=== PATIENT | male | born 1970 | race Caucasian/White ===

== ENCOUNTER 2020-06-14 00:48 | Outpatient (CLI) | payer OTHER, SELFPAY ==
[2020-06-14 18:32] LABS: SARS-CoV-2 RNA PCR Negative
== END 2020-06-14 00:49 | disposition home or self-care (01) ==
LOC: ANHCOVIDDT 00:49
PROVIDERS: PCP Family Medicine; Visit Provider Internal Medicine Gastroenterology
DX: Z01.812 Encounter for preprocedural laboratory examination (principal); Z11.59 Encounter for screening for other viral diseases
CPT/HCPCS: 87635; C9803; U0003

== ENCOUNTER 2020-06-17 01:57 | Day surgery (SDC) | payer OTHER, SELFPAY ==
[2020-06-06 11:33] VITALS: BMI 23.1
[2020-06-17 10:23] VITALS: BP 132/90; PULSE 72; RESP 18; TEMP 36.8; O2SAT 100
--- NOTE | 2020-06-17 10:28 | WPDANESEPPF ---
Anes - Initial Pre Proc Eval Procedure: Operation Date: 06/17/20 11:30 Proposed Procedures p Screening Colonoscopy - Junior Platt MD Date/Time: 06/17/20 10:28 Surgeon: Junior Platt MD Pre Op Diagnosis: Neoplasm Screening Patient Data Age: 50 Gender: M Height: 5 ft 11 in Weight: 73 kg Last Vital Signs Temp 98.3 F 06/17/20 10:23 Pulse 72 06/17/20 10:23 Resp 18 06/17/20 10:23 BP 132/90 06/17/20 10:23 Pulse Ox 100 06/17/20 10:23 Allergies Allergy/AdvReac Type Severity Reaction Status Date / Time No Known Allergies Allergy Verified 06/17/20 10:22 Home Medications Medication Instructions Recorded Confirmed Type No Home Medications 09/28/19 06/17/20 History Patient hx anesthesia problems: none Family hx anesthesia problems: none PMFSH Surgical History Surgical History (System 09/29/19 @ 14:36 by Jayne Correa) No history of previous surgery Social History Social History (Updated 05/28/20 @ 08:57 by Mylene Rodriguez) Smoking packs per day: 0.5 Smoking cigarettes per day: 10.0 Years smoked: 5 Smoking pack-years: 2.50 Smoking status: Former smoker Tobacco type: cigarettes Smoking end date: 05/28/02 Alcohol intake: current Substance use: never Substance use type: does not use Gender identity (if verbalized by the patient): Male Anes - Eval Final PreProcedure Day of Procedure 06/17/20 10:28 Patient weight: normal Heart: regular rate and rhythm Lungs: clear to auscultation Airway: Mallampati scale class II Neurological: alert and oriented Last oral intake: >/= 8 hours ASA classification: II Emergent: no Anesthetic plan: proceed Anesthesia type and monitoring: general GIVS and standard monitoring Informed Consent: The patient's anesthetic plan and its attendant risks and benefits were discussed with the patient/family/POA. Questions were solicited and answers provided to the satisfaction of the patient/family/POA.
[2020-06-17] MEDS: LACTATED RINGERS 1,000 ML 150 ML IV CONT (10:35)
--- NOTE | 2020-06-17 11:01 | PM.HPGS ---
History of Present Illness History of Present Illness Consent: Risks, benefits, and alternatives have been discussed and questions answered. Patient agrees to proceed with procedure. Chief complaint: Neoplasm Screening Narrative: Chi Dubon is a 50 year old male [facility] Surgical History Surgical History (System 09/29/19 @ 14:36 by Jayne Correa) No history of previous surgery Social History Social History Smoking packs per day: 0.5 Smoking cigarettes per day: 10.0 Years smoked: 5 Smoking pack-years: 2.50 Smoking status: Former smoker Tobacco type: cigarettes Smoking end date: 05/28/02 Alcohol intake: current Substance use: never Substance use type: does not use Gender identity (if verbalized by the patient): Male Meds Home Medications and Allergies Home Medications Medication Instructions Recorded Confirmed Type No Home Medications 09/28/19 06/17/20 History Allergies Allergy/AdvReac Type Severity Reaction Status Date / Time No Known Allergies Allergy Verified 06/17/20 10:22 Vital Signs Vital Signs - 24 hr 06/17/20 10:23 Temperature 36.8 C Pulse Rate 72 Respiratory Rate 18 Blood Pressure 132/90 Pulse Oximetry 100 Exam Resp: Auscultation: clear to auscultation bilaterally Cardio: Rate: regular rate Rhythm: regular rhythm GI: GI Palp: Yes Soft to palpation and No Tenderness to palpation present (GI) Assessment and Plan Assessment and plan (1) Colon cancer screening: Code(s): Z12.11 - Encounter for screening for malignant neoplasm of colon Status: Acute Assessment and Plan: Colonoscopy with possible biopsy or polypectomy or cautery or injection of substances.
[2020-06-17 11:34] VITALS: BP 114/75; PULSE 84; RESP 23; O2SAT 97
[2020-06-17 11:44] VITALS: BP 110/80; PULSE 65; RESP 22; O2SAT 98
[2020-06-17 11:54] VITALS: BP 135/86; PULSE 66; RESP 17; O2SAT 100
== END 2020-06-17 12:13 | disposition home or self-care (01) ==
PROVIDERS: PCP Family Medicine; Visit Provider Internal Medicine Gastroenterology
PROC: 0DJD8ZZ Inspection of Lower Intestinal Tract, Via Natural or Artificial Opening Endoscopic (ICD-10-PCS; CPT 45378; principal; 2020-06-17 11:30)
DX: Z12.11 Encounter for screening for malignant neoplasm of colon (principal); Z87.891 Personal history of nicotine dependence
CPT/HCPCS: 45378; J2001; J2704; J7120

== ENCOUNTER 2020-06-23 13:16 | Outpatient (CLI) | payer OTHER, SELFPAY ==
--- NOTE | ~2020-06-23 | MMUS_ITS ---
EXAMINATION: MM diagnostic mammo unilat LT, US breast LT limited HISTORY: Left breast lump TECHNIQUE: Digital MLO and CC and right MLO views. CAD analysis was submitted and interpreted. High r esolution left breast ultrasound was performed. COMPARISON: None BREAST PARENCHYMAL COMPOSITION: There are scattered areas of fibroglandular density. FINDINGS: MAMMOGRAPHIC FINDINGS: There is minimal bilateral gynecomastia, more prominent on the left. No suspicious mammographic mass, architectural distortion or any malignant calcification, skin thickening or retraction is evident. ULTRASOUND: 1:00 1 cm from nipple: Parallel circumscribed 3.7 x 3.3 x 5.5 mm sonolucency without internal vascula rity or shadowing, probably benign cyst A 1.9 mm sonolucency consistent with probably benign cyst is adjacent. IMPRESSION: 1. No mammographic evidence of malignancy 2. Minimal bilateral gynecomastia, more prominent on the left 3. Probable cysts of left breast at 1:00 1 cm from nipple; 6 month left breast ultrasound follow-up i s recommended BI-RADS category 3, probably benign findings. Reviewed, dictated and finalized at location A. IMPRESSION: 1. No mammographic evidence of malignancy 2. Minimal bilateral gynecomastia, more prominent on the left 3. Probable cysts of left breast at 1:00 1 cm from nipple; 6 month left breast ultrasound follow-up is recommended BI-RADS category 3, probably benign findings.
== END 2020-06-23 13:17 | disposition home or self-care (01) ==
LOC: ANHIMG 13:17
PROVIDERS: PCP Family Medicine; Visit Provider Family Medicine
DX: N63.20 Unspecified lump in the left breast, unspecified quadrant (principal); R92.8 Other abnormal and inconclusive findings on diagnostic imaging of breast
CPT/HCPCS: 76642; 77065

== ENCOUNTER 2021-01-05 12:13 | Outpatient (CLI) | payer OTHER, SELFPAY ==
--- NOTE | ~2021-01-05 | US_ITS ---
US breast LT limited DATE: 01/05/2021 12:35 INDICATION: Probable cyst of left breast at 1:00 1 cm from nipple reported on limited lef t breast ultrasound TECHNIQUE: Real-time imaging of left breast targeted to 1:00 1 cm from nipple COMPARISON: 06/23/2020 left diagnostic mammogram and limited left breast ultrasound FINDINGS: 1:00 1 cm from nipple: There is an approximately 1.5 x 1.1 x 2.1 mm sonolucency without internal vasc ularity or posterior shadowing. The margins appear mildly irregular. Ultrasound-guided aspiration or if necessary biopsy is recommended. IMPRESSION: BI-RADS Category 4A: Suspicious abnormality; biopsy should be considered Recommendation: Ultrasound-guided aspiration attempt, with biopsy if necessary for 1:00 lesion 1 cm f rom nipple Reviewed, dictated and finalized at Location A. Reviewed, dictated and finalized at location A. ICIAN OBSTETRICIAN IMPRESSION: BI-RADS Category 4A: Suspicious abnormality; biopsy should be consi dered Recommendation: Ultrasound-guided aspiration attempt, with biopsy if necessary for 1:00 lesion 1 cm from nipple
== END 2021-01-05 12:14 | disposition home or self-care (01) ==
LOC: ANHIMG 12:19
PROVIDERS: PCP Family Medicine; Visit Provider Family Medicine
DX: N63.20 Unspecified lump in the left breast, unspecified quadrant (principal); R92.8 Other abnormal and inconclusive findings on diagnostic imaging of breast
CPT/HCPCS: 76642

== ENCOUNTER 2021-01-16 10:22 | Outpatient (CLI) | payer OTHER, SELFPAY ==
--- NOTE | ~2021-01-16 | US_ITS ---
US breast LT limited 01/16/2021 11:34 Indication: Mass identified on recent examination. Ultrasound-guided biopsy recommended. Procedure: High-resolution ultrasound of the left breast Comparison: 01/05/2021 Findings: Dr. Grajeda was present during the examination. At 1:00, 1 cm from the nipple, there is a comp licated cyst with enhanced or transmission, smooth margins and parallel orientation. No internal vasc ularity. This mass measures 3 mm. Impression: 1: Left breast mass measuring 3 mm at 1:00 is most likely benign complicated cyst. BI-RADS CATEGORY 3-PROBABLY BENIGN FINDING RECOMMENDATION: 6 month follow up recommended. Reviewed, dictated and finalized at location A. OFFICE Impression: 1: Left breast mass measuring 3 mm at 1:00 is most likely benign complicated cy st. BI-RADS CATEGORY 3-PROBABLY BENIGN FINDING RECOMMENDATION: 6 month follow up recommended.
== END 2021-01-16 10:23 | disposition home or self-care (01) ==
PROVIDERS: PCP Family Medicine; Visit Provider Surgery
DX: N63.20 Unspecified lump in the left breast, unspecified quadrant (principal); R92.8 Other abnormal and inconclusive findings on diagnostic imaging of breast
CPT/HCPCS: 76642

== ENCOUNTER → 2023-09-19 11:48 | Outpatient (CLI) | payer OTHER, SELFPAY ==
--- NOTE | ~2023-09-19 | XR_ITS ---
Lumbosacral Spine: AP, oblique, and lateral views Clinical History: Pain Findings: The normal lordotic curve is maintained. The vertebral bodies and posterior elements are i ntact. The intervertebral disc spaces are preserved. There are minimal facet joint degenerative adame ges. The sacroiliac joints are normally outlined. Impression: Minimal facet joint degenerative change at the lower lumbar spine. Reviewed, dictated and finalized at location . Impression: Minimal facet joint degenerative change at the lower lumbar spine.
== END ==
PROVIDERS: PCP Physician Assistant; Visit Provider Physician Assistant
DX: M54.50 Low back pain, unspecified (principal); M79.604 Pain in right leg
CPT/HCPCS: 72110

== ENCOUNTER 2023-11-03 16:35 | Outpatient (CLI) | payer OTHER, SELFPAY ==
--- NOTE | ~2023-11-03 | MR_ITS ---
EXAMINATION: MR lumbar spine wo con DATE: 11/03/2023 17:31 INDICATION: Intervertebral disc disorder with radiculopathy. Right-sided sciatica. TECHNIQUE: Magnetic resonance imaging (MRI) of the lumbar spine was performed without intravenous con trast. Sequences included sagittal T2-weighted FSE, sagittal T2-weighted FS FSE, sagittal T1-weighted FSE, and axial T2-weighted FSE. COMPARISON: Lumbar spine radiographs 08/14/2015 FINDINGS: Bone alignment is normal. Vertebral body heights are normal. There is moderately decreased disc height at L4-L5. The distal spinal cord signal intensity is normal. The conus medullaris is at L 1. The following disc levels are specifically discussed: L1-L2: The disc does not extend beyond the endplate margin. There is no facet joint osteoarthritis. T here is no neural foraminal stenosis. There is no central canal stenosis. L2-L3: The disc does not extend beyond the endplate margin. There is mild bilateral facet joint osteo arthritis. There is no neural foraminal stenosis. There is no central canal stenosis. L3-L4: The disc is mildly bulging. There is moderate right and mild left facet joint osteoarthritis. There is mild bilateral neural foraminal stenosis. There is no central canal stenosis. L4-L5: The disc is bulging. There is a superimposed right subarticular zone extrusion that extends to the posterior epidural space. There is severe bilateral facet joint osteoarthritis. There is moderat e bilateral neural foraminal stenosis. There is moderate central canal stenosis. L5-S1: There is a right central extrusion. There is mild bilateral facet joint osteoarthritis. There is no neural foraminal stenosis. There is mild central canal stenosis. IMPRESSION: 1. Moderate lumbar spondylosis, worst at L4-L5. Reviewed, dictated and finalized at location E. TEACHER
== END 2023-11-03 16:36 | disposition home or self-care (01) ==
PROVIDERS: PCP Physician Assistant
DX: M51.16 Intervertebral disc disorders with radiculopathy, lumbar region (principal); M43.06 Spondylolysis, lumbar region
CPT/HCPCS: 72148

== ENCOUNTER 2025-02-07 12:24 | Outpatient (CLI) | payer OTHER, SELFPAY ==
--- NOTE | ~2025-02-07 | MR_ITS ---
MRI of the lumbar spine Clinical History: Back pain Technique: Axial T2-weighted images, and sagittal T1-weighted, T2-weighted, and T2 fat-sat images wer e acquired. Findings: There is no fracture or subluxation of the lumbar spine. Vertebral bodies maintain normal h eight and alignment. No suspicious bone marrow signal abnormality seen. At L1-L2, there is no disc bulge or herniation. No spinal canal stenosis or neural foraminal narrowin g. At L2-L3, there is no disc bulge or herniation. No spinal canal stenosis or neural foraminal narrowin g. At L3-L4, there is minimal disc bulge. There is mild facet arthropathy. No central canal stenosis. Th ere is minimal bilateral neural foraminal narrowing. At L4-L5, there is mild degenerative disc narrowing. There is diffuse disc bulge with superimposed ri ght paracentral disc extrusion, mildly compressing the thecal sac and probably impinging the descendi ng right-sided L5-S1 level nerve root. There is moderate to advanced bilateral neural foraminal narro wing, right worse than left. At L5-S1, there is minimal disc bulge with annular fissure. No spinal canal stenosis or neural forami nal narrowing. Paravertebral soft tissues are unremarkable. Impression: Right paracentral disc extrusion at L4-L5, which probably impinges the descending right-sided L5-S1 l evel nerve root. Additional moderate to advanced degenerative spondylitic changes at L4-L5, as above. Additional minimal degenerative changes in the remainder of the lumbar spine, as above. Reviewed, dictated and finalized at location . Impression: Right paracentral disc extrusion at L4-L5, which probably impinges the descendi ng right-sided L5-S1 level nerve root. Additional moderate to advanced degenerative spondylitic changes at L4-L5, as a jued. Additional minimal degenerative changes in the remainder of the lumbar spine, a s above.
--- OUTSIDE RECORDS SUMMARY | 2025-02-07 13:54 | XMS_ITS | Referral Summary ---
Author Organization [facility] Address [address] [place] [address] Care Team Providers Care Aging Room Hand Name Role Phone Elpidio Steinberg MD Primary Care Provider Allergies No known active allergies Medications cyclobenzaprine (FLEXERIL) 5 mg tablet Take 1 tablet (5 mg total) by mouth 3 (three) times a day as needed for muscle spasms 09/12/2023 Active gabapentin (NEURONTIN) 300 mg capsule 09/22/2023 Active meloxicam (MOBIC) 15 mg tablet Take 1 tablet (15 mg total) by mouth daily 09/19/2023 Active Active Problems No known active problems Social History Tobacco Use Types Packs/Day Years Used Date Smoking Tobacco: Former Cigarettes Q uit: 2004 Tobacco Cessation:Counseling Given: No AUDIT-C Answer Date Recorded Q1: How often do you have a drink containing alc ohol? 2-4 times a month 10/28/2023 Q2: How many drinks containi ng alcohol do you have on a typical day when you are drinking? 3 or 4 10/28/2023 Q3: How often do you have si x or more drinks on one occasion? Never 10/28/2023 Personal Safety Answer Date Recorded Getting School Help Needed Not on file 02/11 Sex and Gender Information Value Date Recorded Sex Assigned at Not on file Legal Sex Male 10:40 AM CDT Gender Identity Not on file Sexual Orientation Not on file Occupation Industry Job Start Date Job End Date Professor Not on file Not on file Not on file Last Filed Vital Signs Vital Sign Reading Time Taken Comments Blood Pressure 130/87 10/28/2023 12:29 PM DIRECTOR OF RECREATION THERAPY Pulse 68 10/28/2023 12:29 PM DIRECTOR OF RECREATION THERAPY Temperature - - Respiratory Rate - - Oxygen Saturation - - Inhaled Oxygen Concentration - - Weight 77.1 kg (170 lb) 10/28/2023 12:29 PM DIRECTOR OF RECREATION THERAPY Height 180.3 cm (5' 11 ) 10/28/2023 12:29 PM DIRECTOR OF RECREATION THERAPY Body Mass Index 23.71 10/28/2023 12:29 PM DIRECTOR OF RECREATION THERAPY Plan of Treatment Not on file Insurance Care Teams Aging Room Hand Relationship Specialty Start Date End Date Elpidio Steinberg MD [address] [facility] [address] [place] [address] PCP - General Family Medicine 09/14/23
--- OUTSIDE RECORDS SUMMARY | 2025-02-07 13:54 | XMS_ITS | Clinical Summary ---
Author Organization [facility] Address [address] [place] [address] Care Team Providers Care Digital Media Planner Name Role Phone Elpidio Steinberg MD Primary [...] Active Active Problems No known active problems Family History Medical History Relation Name Comments Heart attack Other Heart disease Other Hypertension Other Relation Name Status Comments Other Social History Tobacco Use Types Packs/Day Years Used Date Smoking Tobacco: Former Cigarettes Q uit: 2003 Tobacco Cessation:Counseling Given: No AUDIT-C Answer Date [...] file Not on file Not on file Obstetrics History Last Filed Vital Signs Vital Sign Reading Time Taken Comments Blood Pressure 130/87 10/28/2023 12:29 PM DIGITAL INTERN Pulse 68 10/28/2023 12:29 PM DIGITAL INTERN Temperature - - Respiratory Rate - - Oxygen Saturation - - Inhaled Oxygen Concentration - - Weight 77.1 kg (170 lb) 10/28/2023 12:29 PM DIGITAL INTERN Height 180.3 cm (5' 11 ) 10/28/2023 12:29 PM DIGITAL INTERN Body Mass Index 23.71 10/28/2023 12:29 PM DIGITAL INTERN Plan of Treatment Health Maintenance Due Date Last Done Comments Colon Cancer Screening-Colonoscopy 1970 Depression Screening 1970 Hepatitis C Screening 1970 Prostate Cancer Screening-PSA 1970 DTaP/Tdap/Td Vaccine (1 - Tdap) 1981 Hepatitis B Screening 1988 Regular Well Visit/Exam 18-64 1988 Zoster Vaccine (1 of 2) 2020 Covid-19 Vaccine ( - 2023-2 5 season) 2024 01/05/2022, 03/15/2021, 02/22/2021 Influenza Vaccine (#1) 2024 Pneumococcal vaccine <65 Aged Out No longer eligible based on patient's age to complete this topic Insurance COUNTS INCLUDE 234 BEDS AT THE [facility] [id number] COUNTS INCLUDE 234 BEDS AT THE [facility] [id number] Care Teams Digital Media Planner Relationship Specialty Start Date End Date Elpidio Steinberg MD [address] [facility] [address] [place] [address] PCP - General Family Medicine 09/14/23
== END 2025-02-07 12:25 | disposition home or self-care (01) ==
PROVIDERS: PCP Family Medicine; Visit Provider Nurse Practitioner Family
DX: M51.26 Other intervertebral disc displacement, lumbar region (principal); M47.816 Spondylosis without myelopathy or radiculopathy, lumbar region
CPT/HCPCS: 72148

== ENCOUNTER 2025-11-17 08:55 | Emergency (ER) | payer OTHER, SELFPAY ==
--- NOTE | 2025-11-17 09:38 | ED.EXTPRO ---
HPI - Extremity Problem General Chief complaint: Extremity Problem,Nontraumatic Stated complaint: L thumb pain Time Seen by Provider: 11/17/25 09:00 Source: patient Mode of arrival: ambulatory Limitations: no limitations History of Present Illness HPI Narrative: patient is a 55-year-old male who presents with left thumb pain for 2 weeks. Patient denies any injury but does state he gets fungal infections frequently. Patient states it does feel different than his normal fungal infection. denies any swelling, drainage or redness. Patient able to move thumb normally Related Data Allergies Allergy/AdvReac Type Severity Reaction Status Date / Time No Known Allergies Allergy Verified 11/17/25 09:24 Review of Systems Review of Systems: All systems reviewed & are unremarkable except as noted in HPI and below Constitutional: Constitutional: Denies body ache(s), Denies chills, Denies fatigue, Denies fever(s), Denies headache(s), Denies malaise and Denies weakness Eyes: Eyes: Denies blurry vision, Denies irritation and Denies loss of vision ENT: Denies otalgia, Denies headache(s), Denies nasal discharge, Denies sinus pain and Denies sore throat Cardiovascular: Cardiovascular: Denies chest pain, Denies irregular heart rhythm and Denies dyspnea Respiratory: Respiratory: Denies dyspnea Gastrointestinal: Gastrointestinal: Denies abdominal pain, Denies melena, Denies hematochezia, Denies diarrhea, Denies nausea and Denies vomiting Musculoskeletal: Musculoskeletal: Denies back pain, Reports myalgias and Denies arthralgias Integumentary/Breasts: Skin/Breast: Denies pruritus and Denies rash Neurologic: Denies headache(s), Denies loss of vision and Denies weakness Psychiatric: Psychiatric: Reports no additional psychiatric complaints Endocrine: Endocrine: Denies fatigue PMFSH Past Medical History Medical History Healthy adult Surgical History Surgical History No history of previous surgery Family History Family History Father Heart disease Social History Social History Smoking packs per day: 0.5 Smoking cigarettes per day: 10.0 Years smoked: 5 Smoking pack-years: 2.50 Smoking status: Former smoker Tobacco type: cigarettes Smoking end date: 05/28/02 Alcohol intake: current Alcohol use details: social drinker Substance use: never Substance use type: does not use Living arrangements: with family Occupation/Education: occupation Additional occupation/education comments: Professor at [employer] Gender identity (if verbalized by the patient): Male Sexual Orientation (if Verbalized by the Patient): Straight or Heterosexual Comments At time of signature, agree with nursing past medical, surgical, social and family history. There is no relevant family history pertinent to the presenting complaint. Exam Const: General: cooperative, healthy appearing, comfortable, no acute distress and well nourished Nutritional Appearance: well nourished Orientation/consciousness: patient oriented x3 Limitations: no limitations HENMT: Head: normal to inspection, normocephalic and atraumatic Ears: hearing grossly normal bilaterally and external ears normal Face/Nose/Sinus: Normal external nose present, normal facial exam and face symmetric Face and sinus: normal facial exam and face symmetric Mouth: Yes lip normal Eyes: General: appearance normal, both eyes and all related structures Alignment and Position: alignment normal and position normal Periorbital: periorbital findings normal Eyelids: eyelids normal Pupils: Equal, round and reactive pupils present EOM: EOMs intact bilaterally Neck: Neck: normal visual inspection, full ROM and supple Chest: Chest palpation & inspection: normal inspection of the chest Resp: Effort & Inspection: normal respiratory effort and able to speak in complete sentences Auscultation: clear to auscultation bilaterally Cardio: Rate: regular rate Rhythm: regular rhythm Heart sounds: S1 normal heart sound present and S2 normal heart sound present GI: Inspection: normal to inspection Skin: General skin exam: normal color and no rashes or lesions noted Neuro: General: patient oriented x3 and moves all extremities Cranial nerves: Yes Equal, round and reactive pupils present Speech: normal speech Gait exam (Neuro): Normal gait present Extrem: General: normal to inspection, full ROM and no edema Hand/finger images:  1. linear discoloration with no drainage or erythema Psych: Appearance: grossly normal and well kempt Mental Status: mental status grossly normal Speech and movement: Normal speech and movement present Affect: normal affect Attitude: cooperative Thought process: Normal thought process present Course Course Emergency Course: Patient is aware of diagnosis, understands and agrees to treatment plan. Anticipatory guidance given. Patient agrees to follow-up as directed and is aware of reasons to seek care at the emergency department. Portions of this record may have been created with voice recognition software Level of Care: Express Care Visit Vital Signs Vital signs: Vital Signs Temperature 36.2 C L 11/17/25 09:46 Pulse Rate 55 L 11/17/25 09:46 Respiratory Rate 16 11/17/25 09:46 Blood Pressure 131/93 H 11/17/25 09:46 Pulse Oximetry 100 11/17/25 09:46 Oxygen Delivery Room Air 11/17/25 09:46 Temperature 36.2 C L 11/17/25 09:46 Pulse Rate 55 L 11/17/25 09:46 Respiratory Rate 16 11/17/25 09:46 Blood Pressure 131/93 H 11/17/25 09:46 Pulse Oximetry 100 11/17/25 09:46 Oxygen Delivery Room Air 11/17/25 09:46 MDM MDM Narrative Medical decision making narrative: will treat patient with antibiotics and antifungal oral medication. Did not x-ray as there was no injury. Will refer to our to Sarah if symptoms are not improving Pt well hydrated appearing, in no respiratory distress, hemodynamically stable. Recommend supportive care. The patient is stable at time of discharge the clinical impression was discussed and the patient was given the opportunity to ask questions, which were addressed as completely as possible given the information available at present. Anticipatory guidance and return to care precautions were discussed and the importance of primary care follow-up was stressed and encouraged. The patient voiced understanding of the plan, indications to return, and the need for follow-up. Exam findings show no acute concerns or changes Patient is appropriate for outpatient treatment and follow-up. Differential Diagnosis Differential Diagnosis: bacterial nail infection, fungal infection Medical Records I have reviewed the following patient records and this information was taken into consideration when formulating the assessment and plan.: previous clinic visits Discharge Plan Discharge Clinical Impression: Infected nailbed of finger Qualifiers: Laterality: left Qualified Code(s): L03.012 - Cellulitis of left finger Patient Disposition: Home Condition: Stable Instructions: Acute Wounds (ED) Additional Instructions: 1) Please follow-up with your primary care doctor in the next 1-2 days. 2) If you have any worsening of symptoms or any other urgent concerns please go to the ER. 3) Please take medications as prescribed and continue taking your home medications as usual. 4) Please read and follow information included in discharge instructions. Patient Language: Telugu Prescriptions: New fluconazole 150 mg tablet 150 mg PO WEEKLY Qty: 2 0RF amoxicillin-pot clavulanate 875-125 mg tablet 1 tablet PO Q12H 10 Days Qty: 20 0RF Follow-up/Referrals: Ioana Smith MD [Physician, Plastic Surgery] - 3 Days Elpiido Steinberg MD [Primary Care Provider, Family Practice] - 3 Days Time of Disposition: 09:45
[2025-11-17 09:46] VITALS: BP 131/93; PULSE 55; RESP 16; TEMP 36.2; O2SAT 100
== END 2025-11-17 09:49 | disposition home or self-care (01) ==
PROVIDERS: Emergency Provider Nurse Practitioner Family; PCP Family Medicine
DX: L03.012 Cellulitis of left finger (principal); Z87.891 Personal history of nicotine dependence
CPT/HCPCS: 99213; G0463